=== PATIENT | female | born 2000 | race Two or more races ===

== ENCOUNTER 2025-06-15 10:45 | Emergency (ER) | payer MEDICAID ==
[~2025-06-15] VITALS: Ht 167.6 cm; Wt 92.1 kg
[~2025-06-15 10:45] MED LIST: IBUP-1454 PO; VALA1TAB34 PO
[2025-06-15 10:47] VITALS: BP 130/90; PULSE 100; RESP 15; TEMP 98.9; O2SAT 100
--- NOTE | 2025-06-15 11:05 | ED.PDOC ---
K[facility] HPI Comments This is a 24 year old female presenting to the ED with chief complaint of vaginal bleeding during . Patient reports that she found out she was last week and since 10am this morning she has been experiencing vaginal bleeding with associated clots being passed. Patient relays that her next OBGYN appointment is on Friday. Patient states that she is . Patient notes her LMP was on 04/22/25. Patient denies any N/V/D, abdominal pain, diz ziness, fever, or chills. Chief Complaint: Vaginal Bleed Time Seen by MD: 11:03 Reviewed Notes: Nurses Notes, Medications, Allergies Allergies: Coded Allergies: NO KNOWN ALLERGIES (Unverified , 09/17/22) Home Meds Active Scripts Ibuprofen (Ibuprofen) 600 Mg Tab, 1 TAB PO TID, #30 TAB Prov:SARAH CRUZ PAC 09/17/22 Valacyclovir HCl (Valacyclovir HCl) 1 Gm Tab, 1 GM PO BID for 3 Days, #20 TAB Prov:SARAH CRUZ PAC 09/17/22 Information Source: Patient Mode of Arrival: Ambulatory Timing: Hours Prehospital treatment: None Severity: Mild Bleeding Quality: Bright Red, Clotted Onset Of Mass/Bleeding: Spontaneous Sexual Activity: Last Consensual [place]: Unknown History of: Current Associated Signs and Symptoms: Vaginal Bleeding Past Medical History PAST MEDICAL HISTORY: Denies Surgical History: Denies all surgeries 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 History Family History Family History: Reviewed,noncontributory to illness, No family hx of Cancer, No family hx of DM, No family hx of Heart maty, No family hx of HTN, No family hx ofKidney maty, No family hx of Liver maty, No family hx of Lung maty, No family hx of Stroke Social History Smoker: Non-Smoker Alcohol: Denies ETOH Use Drugs: Denies Drug Use Lives In: Home Constitutional: denies: chills, diaphoresis, fatigue, fever, malaise, sweats, weakness, others EENTM: denies: blurred vision, double vision, ear bleeding, ear discharge, ear drainage, ear pain, ear ringing, eye pain, eye redness, hearing loss, mouth pain, mouth swelling, nasal discharge, nose bleeding, nose congestion, nose pain, photophobia, tearing, throat pain, throat swelling, voice changes, others Respiratory: denies: cough, hemoptysis, orthopnea, SOB at rest, shortness of breath, SOB with excertion, stridor, wheezing, others Cardiovascular: denies: chest pain, dizzy spells, diaphoresis, Dyspnea on exertion, edema, irregular heart beat, left arm pain, lightheadedness, palpitations, PND, syncope, others Gastrointestinal: denies: abdomen distended, abdominal pain, blood streaked bowels, constipated, diarrhea, dysphagia, difficulty swallowing, hematemesis, me nura, nausea, poor appetite, poor fluid intake, rectal bleeding, rectal pain, vomiting, others Genitourinary: reports: abnormal vagina bleeding, ; denies: burning, dyspareunia, dysuria, flank pain, frequency, hematuria, incontinence, pain, vagina discharge, urgency, others Neurological: denies: dizziness, fainting, headache, left sided numbness, left sided weakness, numbness, paresthesia, pre-existing deficit, right sided numbness, right sided weakness, seizure, speech problems, tingling, tremors, weakness, others Musculoskeletal: denies: back pain, gout, joint pain, joint swelling, muscle pain, muscle stiffness, neck pain, others Integumetry: denies: bruises, change in color, change in hair/nails, dryness, laceration, lesions, lumps, rash, wounds, others Allergic/Immunocompromised: denies: Difficulty Healing, Frequent Infections, Hives, Itching, others Hematologic/Lymphatic: denies: anemia, blood clots, easy bleeding, easy bruising, swollen glands, others Endocrine: denies: excessive hunger, excessive sweating, excessive thirst, excessive urination, flushing, intolerance to cold, intolerance to heat, unexplained weight gain, unexplained weight loss, others Psychiatric: denies: anxiety, bipolar disorder, depression, hopeless, panic disorder, schizophrenia, sleepless, suicidal, others All Other Systems: Reviewed and Negative Physical Exam General Appearance: Moderate Distress, Normal HEENT: Normal ENT Inspection, Pharynx Normal, TMs Normal Neck: Full Range of Motion, Non-Tender, Normal, Normal Inspection Respiratory: Chest Non-Tender, Lungs Clear, No Accessory Muscle Use, No Respiratory Distress, Normal Breath Sounds Cardiovascular: No Edema, No JVD, No Murmur, No Gallop, Normal Peripheral Pulses, Regular Rate/Rhythm Breast Exam: Deferred Gastrointestinal: No Organomegaly, Non Tender, No Pulsatile Mass, Normal Bowel Sounds, Soft Genitalia: Deferred Pelvic: Deferred Rectal: Deferred Extremities: No calf tenderness, Normal capillary refill, Normal inspection, Normal range of motion, Non-tender, No pedal edema Musculoskeletal : Apperance: Normal 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 Was a procedure done?: No Differential Diagnosis (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) Vaginal Bleeding: - Complete, - Incomplete, - Inevitable, - Missed, - Threatened X-Ray, Labs, Meds, VS Vital Signs Date Time Temp Pulse Resp B/P (MAP) Pulse Ox O2 Delivery O2 Flow Rate FiO2 06/15/25 10:47 98.9 100 15 130/90 100 98.9 Lab Test 06/15/25 11:17 Range/Units Beta HCG, Quantitative 31.6 H 1.5-4.2 mIU/mL Patient alert. Came in because of vaginal bleeding. Vitals stable. Answering questions. Saturation pristine on room air. Respiratory rate within normal limits. No acute distress. No cramping. No sign of any ectopic. Explained to the patient. Was told to follow up with her primary care physician. Was told to come back if there is any problem. Time of 1ST Reevaluation: 12:02 Reevaluation 1ST: Improved Patient Education/Counseling: Diagnosis, Treatment Family Education/Counseling: No Family Present Departure 1 Departure Time of Disposition: 11:06 Impression: Primary Impression: Normal Qualified Codes: Z34.90 - Encounter for supervision of normal , unspecified, unspecified trimester Disposition: 30 STILL A PATIENT Condition: Good Discharged With: Self Critical Care Note Critical Care Time?: No Stability Stability form required: No Heart Score Heart Score: Heart Score Response (Comments) Value History N/A 0 EKG N/A 0 Age N/A 0 Risk Factors N/A 0 Troponin N/A 0 Total 0 I personally scribed for MARIPOSA SANTOS MD ([email or web address]) on 06/15/25 at 11:05. Electronically submitted by Isidro Christie ([email or web address]). MARIPOSA SANTOS MD Jun 15, 2025 11:05
--- NOTE | 2025-06-15 14:45 | DVH ---
EXAM: US OB ULTRASOUND COMP LESS 14WKS HISTORY: cramping COMPARISON: None TECHNIQUE: Transabdominal and transvaginal imaging was utilized. Grayscale and color doppler evaluation. Images were stored in the patient's permanent medical record. FINDINGS: UTERUS: 8.9 x 4.2 x 5.4 cm. Endometrial stripe: 1.5 cm. No visualized intrauterine at this time RIGHT OVARY: 3 x 1.3 x 2 cm.Normal vascularity. No suspicious masses or cysts. LEFT OVARY: 3.3 x 1.6 x 2.1 cm. Normal vascularity. No suspicious masses or cysts. OTHER: No free fluid is identified. Hypoechoic foci in the cervix. IMPRESSION: 1. No visualized intrauterine at this time 2. Low beta HCG
== END 2025-06-15 21:13 | disposition left against medical advice (07) ==
LOC: ER 10:45
DX: Z34.90 Encounter for supervision of normal pregnancy, unspecified, unspecified trimester (principal); Z3A.00 Weeks of gestation of pregnancy not specified
CPT/HCPCS: 36415; 76801; 76817; 84702